=== PATIENT | female | born 1985 | race African-American/Black ===

== ENCOUNTER 2016-12-14 13:46 | Emergency (ER) | payer MEDICAID ==
[~2016-12-14] VITALS: Ht 167.6 cm; Wt 91.0 kg
[2016-12-14] MEDS ORDERED: KETOROLAC 60MG/2ML VIAL IM ONE (17:30)
[2016-12-14 17:32] VITALS: BP 117/57
== END 2016-12-14 18:16 | disposition home or self-care (01) ==
LOC: ER 14:29
DX: S29.011A Strain of muscle and tendon of front wall of thorax, initial encounter (principal); X58.XXXA Exposure to other specified factors, initial encounter; Y93.89 Activity, other specified; Y92.89 Other specified places as the place of occurrence of the external cause; F12.10 Cannabis abuse, uncomplicated; F17.210 Nicotine dependence, cigarettes, uncomplicated; Z88.3 Allergy status to other anti-infective agents
CPT/HCPCS: 71010; 81025; 82962; 93005; 96372; 99284; J1885; Z7610